=== PATIENT | male | born 1940 | race Caucasian/White ===

== ENCOUNTER → 2021-08-17 08:17 | Outpatient (BNVA) | payer MEDICARE, SELFPAY | PROVIDERS: PCP Internal Medicine; Visit Provider Nurse Practitioner Family | DX: R26.9 Unspecified abnormalities of gait and mobility (principal); R13.10 Dysphagia, unspecified; M48.061 Spinal stenosis, lumbar region without neurogenic claudication | CPT/HCPCS: 99212 ==

== ENCOUNTER → 2021-11-16 10:08 | Outpatient (BNVA) | payer MEDICARE, SELFPAY | PROVIDERS: PCP Internal Medicine; Visit Provider Nurse Practitioner Family | DX: R26.9 Unspecified abnormalities of gait and mobility (principal); W19.XXXA Unspecified fall, initial encounter | CPT/HCPCS: 99212 ==

== ENCOUNTER → 2022-06-07 08:52 | Outpatient (BNVA) | payer MEDICARE, SELFPAY | PROVIDERS: PCP Internal Medicine; Visit Provider Nurse Practitioner Family | DX: R26.9 Unspecified abnormalities of gait and mobility (principal); Z91.81 History of falling | CPT/HCPCS: 99212 ==

== ENCOUNTER → 2022-12-06 08:34 | Outpatient (BNVA) | payer MEDICARE, SELFPAY | PROVIDERS: PCP Internal Medicine; Visit Provider Nurse Practitioner Family | DX: R26.9 Unspecified abnormalities of gait and mobility (principal); R29.898 Other symptoms and signs involving the musculoskeletal system; Z91.81 History of falling | CPT/HCPCS: 99212 ==

== ENCOUNTER 2023-06-13 10:49 | Outpatient (AMB) | payer MEDICARE, SELFPAY ==
--- NOTE | 2023-06-13 10:53 | A.OFFVIS_ITS ---
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 He still feels gait imbalance sometimes, veering while he walks. However, no falls since 2020. Pt states that he is afraid to fall, stay in his recliner, and does not walk frequently. Pt tried physical therapy in the past, and it helped him to have good balance and strength. He uses cane but sometimes just carries cane. He also uses rolled walker, and it helps him walk better, but can't use it inside his house. Pt gets light headedness in the morning. He drinks only couple of sips of water daily. Denies vision changes. Denies headache, or urinary incontinence. Denies confusion or cognitive changes. 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 Review of Systems Const All systems reviewed & are unremarkable except as noted in HPI and below ENT Reports Normal hearing present Neuro Reports Normal hearing present Physical Exam Vital Signs: Last Vital Signs Pulse 76 06/13/23 11:01 BP 110/70 06/13/23 11:01 Pulse Ox 96 06/13/23 11:01 Oxygen Delivery Method Room Air 06/13/23 11:01 Const General: cooperative and comfortable Nutritional Appearance: average body habitus Orientation/consciousness: patient oriented x3 Limitations: ambulation with cane HEENT Head: Yes normocephalic Neck Neck: Yes full ROM and Yes supple Resp Effort & Inspection: normal respiratory effort and able to speak in complete sentences Neuro Other: Decreased bilateral hands document control assistant strength. General: patient oriented x3 Cranial nerves: Yes Bilaterally intact EOM present, Yes Normal hearing present, Yes Ability to bilaterally rotate head present and Yes Ability to bilaterally elevate shoulders present Cognition (Neuro): normal cognition Gait exam (Neuro): Assistive device used (cane) Motor exam (neuro): 5/5 motor strength present throughout and Pronator motor function not present Psych Appearance: grossly normal Mental Status: mental status grossly normal Speech and movement: Normal speech and movement present and Clear speech present Affect: normal affect Attitude: cooperative Assessment & Plan Assessment & Plan (1) Gait disorder: Code(s): R26.9 - Unspecified abnormalities of gait and mobility (2) Falls: Code(s): W19.XXXA - Unspecified fall, initial encounter Plan Advised patient to increase physical activity, walking and gentle exercise to improve muscle strength and balance. Continue to use cane. Advised patient to try physical therapy for gait training and bilateral lower extremities strength. Advised patient to undergo brain MRI to assess for imbalance gait. Encouraged patient to increase PO fluid intake to prevent dehydration and ligh theadedness. Orders: Orders PT Evaluation and Treatment 06/13/23 R26.9 - Unspecified abnormalities of gait and mobility, W19.XXXA - Unspecified fall, initial encounter MR head/brain wo con 06/13/23 R26.9 - Unspecified abnormalities of gait and mobility Coding Level of Care Code Est Pt Level 3 (40574) Diagnoses Gait disorder R26.9 Falls W19.XXXA
[2023-06-13 11:01] VITALS: BP 110/70; PULSE 76; O2SAT 96
== END 2023-06-13 11:33 | disposition home or self-care (01) ==
PROVIDERS: Visit Provider Nurse Practitioner Family
DX: R26.9 Unspecified abnormalities of gait and mobility (principal); R29.6 Repeated falls
CPT/HCPCS: 99213

== ENCOUNTER → 2023-06-13 10:49 | Outpatient (BNVA) | payer MEDICARE, SELFPAY | PROVIDERS: Visit Provider Nurse Practitioner Family | DX: R26.9 Unspecified abnormalities of gait and mobility (principal); Z91.81 History of falling | CPT/HCPCS: 99212 ==

== ENCOUNTER 2023-10-02 08:39 | Outpatient (AMB) | payer MEDICARE, SELFPAY ==
--- NOTE | 2023-10-02 08:46 | MHC.OFFVIS ---
Intake Vital Signs 10/02/23 08:47 Height 5 ft 10 in Weight 180 lb BMI 25.8 BP 118/64 Blood Pressure Location Lt brachial Position Sitting Respiration 16 Pulse 98 Pulse Source Pulse Oximeter Pulse Oximetry (%) 95 Oxygen Delivery Method Room Air Intake Visit Reasons: f/u for balances and recent fall-LVM Intake Note: Pt presents to the office for 4 month follow up for balance issues and falls. Director Inpatient Headache Program Required: No Allergies No Known Allergies Allergy (Verified 10/02/23 08:47) HPI HPI Comments History of Present Illness Details 83 y/o male patient presents with his for follow up of gait imbalance.He had COVID Nov 09-20- he was very weak and had a fall at home, He was trying to get form the chair and fell down. He did not hist his head- he could not stand so he was taken to [facility] and found to have a bleed- ? stroke . He was in the hospital for 1 week and then in rehab . He has been home since Jul 21 He had home PT and OT. 3 weeks prior to that he had a fall - but did not hit his head. 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 Cruz who is following him up in 6 mths He still feels gait imbalance sometimes, veering while he walks. Pt states that he is afraid to fall, stay in his recliner, and does not walk frequently. He uses a walker and cane. Pt gets light headedness in the morning. He drinks only couple of sips of water daily. Denies vision changes. Denies headache, or urinary incontinence. Denies confusion or cognitive changes. 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 decreased blink and facial expression walks with a cane mild off balance and wide based gait General: patient oriented x3 Cranial nerves: Yes Bilaterally intact EOM present, Yes Normal hearing present, Yes Ability to bilaterally rotate head present and Yes Ability to bilaterally elevate shoulders present Cognition (Neuro): normal cognition Gait exam (Neuro): Assistive device used (cane) Motor exam (neuro): 5/5 motor strength present throughout and Pronator motor function not present Psych Appearance: grossly normal Mental Status: mental status grossly normal Speech and movement: Normal speech and movement present and Clear speech present Affect: normal affect Attitude: cooperative Results Reviewed Results Reviewed: CT Brain- 06/29/23- small ill defined hyperdense within the dorsum of the leslie with differential includin small hemorrhage vs vascular malformation. 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 Mild mass effect along the floor of 4 th ventricle. 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 Nonspecific white mater changes. Assessment & Plan Assessment & Plan (1) Gait disorder: Comment: frontal gait disorder Code(s): R26.9 - Unspecified abnormalities of gait and mobility (2) Falls: Code(s): W19.XXXA - Unspecified fall, initial encounter Plan Reviewed MRI Brain and CTA. F/u with Dr. Cruz ( vascular ) Advised patient to increase physical activity, walking and gentle exercise to improve muscle strength and balance. Continue to use walker. Advised patient to try physical therapy for gait training and bilateral lower extremities strength. Advised patient to undergo brain MRI to assess for imbalance gait. Encouraged patient to increase PO fluid intake to prevent dehydration and lightheadedness. Coding Level of Care Code Est Pt Level 4 (35460) Diagnoses Gait disorder R26.9 Falls W19.XXXA
[2023-10-02 08:47] VITALS: BP 118/64; PULSE 98; RESP 16; O2SAT 95; BMI 25.8
== END 2023-10-02 11:21 | disposition home or self-care (01) ==
PROVIDERS: PCP Internal Medicine; Visit Provider Psychiatry & Neurology Neurology
DX: R26.9 Unspecified abnormalities of gait and mobility (principal); R29.6 Repeated falls
CPT/HCPCS: 99214

== ENCOUNTER → 2023-10-02 08:39 | Outpatient (BNVA) | payer MEDICARE, SELFPAY | PROVIDERS: PCP Internal Medicine; Visit Provider Psychiatry & Neurology Neurology | DX: R26.9 Unspecified abnormalities of gait and mobility (principal); Z91.81 History of falling | CPT/HCPCS: 99212 ==

== ENCOUNTER 2024-08-31 09:14 | Outpatient (REF) | payer MEDICARE, SELFPAY ==
[2024-08-31 09:22] VITALS: BP 150/78; PULSE 101; RESP 16; TEMP 36.1; O2SAT 97; BMI 27.4
--- OUTSIDE RECORDS SUMMARY | 2024-08-31 09:33 | XMS_ITS | Clinical Summary ---
Author Organization [facility] it Address [address] [place] [address] Care Team Providers Care Filter Tender Jelly Name Role Phone Hans Messer DO Primary Care Provider [phone] Allergies No known active allergies Medications Medication Sig Dispensed Refills Start Date End Date Status albuterol HFA (PROAIR HFA ; PROVENTIL HFA ; VENTOLIN HFA) 90 mcg/actuation inhaler INHALE 2 PUFFS NEEDED FOR WHEEZING EVERY 6 HOURS 11/08/2023 Active fluticasone furoate-vilanteroL (Breo Ellipta) 100-25 mcg/dose inhaler INHALE ONE PUFF BY MOUTH EVERY DAY 11/27/2023 Active FERROUS SULFATE ORAL Take by mouth. Active glipiZIDE (GLUCOTROL XL) 10 mg 24 hr tablet TAKE ONE TABLET BY MOUTH EVERY DAY WITH FOOD 10/03/2023 Active hydroCHLOROthiazide (HYDRODIURIL) 25 mg tablet Take 1 tablet (25 mg total) by mouth daily. in the morning 12/17/2023 Active lancets (OneTouch Delica Plus Lancet) 33 gauge USE TO TEST BLOOD SUGAR ONCE DAILY DIRECTED 11/13/2023 Active losartan (COZAAR) 25 mg tablet Take 1 tablet (25 mg total) by mouth daily. 12/17/2023 Active simvastatin (ZOCOR) 40 mg tablet TAKE ONE TABLET BY MOUTH EVERY EVENING AT BEDTIME 09/26/2023 Active rivaroxaban (Xarelto DVT-PE Treat 30d Start) starter pack 12/09/2023 Activ e Active Problems Problem Noted Date Diagnosed Date Deep vein thrombosis (DVT) of proximal lower ext remity 12/24/2023 Pulmonary embolus 12/24/2023 Social History Tobacco Use Types Packs/Day Years Used Date Smoking Tobacco: Never Assessed Sex and Gender Information Value Date Recorded Sex Assigned at Not on file Gender Identity Not on file Sexual Orientation Not on file Obstetrics History Last Filed Vital Signs Vital Sign Reading Time Taken Comments Blood Pressure 125/63 01/23/2024 11:36 AM EDT Sitting Left arm Pulse 86 01/23/2024 11:36 AM EDT Temperature - - Respiratory Rate - - Oxygen Saturation - - Inhaled Oxygen Concentration - - Weight 84.9 kg (187 lb 3.2 oz) 01/23/2024 11:36 AM EDT Height 177.8 cm (5' 10 ) 01/23/2024 11: 36 AM EDT Body Mass Index 26.86 01/23/2024 11:36 AM EDT Plan of Treatment Upcoming Encounters Date Type Department Care Team (Late st Contact Info) Description 11/13/2024 11:30 AM EDT Office Visit [facility] Hematology Oncology [address] [place] [address] Kboe-Cherrie Clayton MD [address] [place] [address] Health Maintenance Due Date Last Done Comments DTaP,Tdap,and Td Vaccines (1 - Tdap) 1959 Zoster Vaccines (1 of 2) 1990 Pneumococcal Vaccine: 65+ Ye ars (1 of 1 - PCV) 2005 RSV Immunization Patients 60 + Years Old (1 - 1-dose 75+ series) 2015 Cholesterol Screening (Lipid Panel) 06/26/2022 Depression Screening 06/26/2022 Falls Risk Assessment 06/26/2022 Medicare Annual Wellness Visit 06/26/2022 Social Influencers of Health Screening 06/26/2022 COVID-19 Vaccine (1 - 2023-2 5 season) 2024 Influenza Vaccine (#1) 2024 05/16/2017 HIB Vaccines Aged Out No longer eligi ble based on patient's age to complete this topic HPV Vaccines Aged Out No longer eligi ble based on patient's age to complete this topic Hepatitis A Vaccines Aged Out No long er eligible based on patient's age to complete this topic Hepatitis B Vaccines Aged Out No long er eligible based on patient's age to complete this topic IPV Vaccines Aged Out No longer eligi ble based on patient's age to complete this topic MMR Vaccines Aged Out No longer eligi ble based on patient's age to complete this topic Meningococcal ACWY Vaccine Aged Out N o longer eligible based on patient's age to complete this topic RSV Immunization Patients Un chin 20 months Aged Out No longer eligible b ased on patient's age to complete this topic Varicella Vaccines Aged Out No longer eligible based on patient's age to complete this topic Advance Directives Documents on File Type Date Recorded Patient Extermination Supervisor Expl anation Health Care Decision (hx) 11/22/2023 AD GONSALEZ DIRECTIVE Health Care Decision (hx) 11/22/2023 AD GONSALEZ DIRECTIVE Health Care Decision (hx) 11/22/2023 AD GONSALEZ DIRECTIVE Health Care Decision (hx) 11/22/2023 AD GONSALEZ DIRECTIVE Health Care Decision (hx) 11/22/2023 AD GONSALEZ DIRECTIVE Health Care Decision (hx) 11/22/2023 AD GONSALEZ DIRECTIVE Care Teams Filter Tender Jelly Relationship Specialty Start Date End Date Hans Messer DO [address] [place] [id number] PCP - General 12/02/23
--- OUTSIDE RECORDS SUMMARY | 2024-08-31 09:33 | XMS_ITS | Clinical Summary ---
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 in the morning 0 12/17/2023 Active Lancets (OneTouch Delica Plus [id number]) [facility] USE TO TEST BLOOD SUGAR ONCE DAILY DIRECTED 0 11/13/2023 Active losartan (COZAAR) tablet 25 mg Take 1 tablet (25 mg total) by mouth daily. 0 12/17/2023 Active Xarelto Starter Pack 15 & 20 MG TBPK 0 12/09/2023 Active simvastatin (ZOCOR) tablet 40 mg TAKE ONE TABLET BY MOUTH EVERY EVENING AT BEDTIME 0 09/26/2023 Active Ferrous Sulfate (IRON PO) Take by mouth. 0 Active Active Problems Problem Noted Date Diagnosed Date Deep vein thrombosis (DVT) of proximal lower ext remity 12/24/2023 Pulmonary embolus 12/24/2023 Social History Tobacco Use Types Packs/Day Years Used Date Smoking Tobacco: Never Assessed Sex and Gender Information Value Date Recorded Sex Assigned at Male 12/02/2023 2:19 PM EDT Gender Identity Not on file Sexual Orientation Not on file Job Start Date Occupation Industry Not on file Not on file Not on file Last Filed Vital Signs Vital Sign Reading Time Taken Comments Blood Pressure 125/63 01/23/2024 11:36 AM EDT Pulse 86 01/23/2024 11:36 AM EDT Temperature 36.6 ??C (97.8 ??F) 01/23/2024 11:36 AM E DT Respiratory Rate - - Oxygen Saturation 98% 01/23/2024 11:36 AM EDT Inhaled Oxygen Concentration - - Weight 84.9 kg (187 lb 3.2 oz) 01/23/2024 11:36 AM EDT Height 177.8 cm (5' 10 ) 01/23/2024 11:36 AM EDT Body Mass Index 26.86 01/23/2024 11:36 AM EDT Plan of Treatment Health Maintenance Due Date Last Done Comments COVID-19 Vaccine (#1) 1940 Depression Screening 1952 Preventative Health Evaluation 1958 DTap / Tdap / Td (1 - Tdap) 1959 Shingrix-Zoster Vaccine (1 of 2) 1990 Fall Risk Assessment 2005 Pneumococcal Vaccine (1 of 1 - PCV) 2005 RSV Adult > 60+ Yrs or (1 - 1-dose 75+ series) 2015 Influenza Vaccine (#1) 2024 3, 06/06/2022, 05/05/2020, Additional history exists Hepatitis B Vaccines Aged Out No long er eligible based on patient's age to complete this topic RSV Ped < 20 months Aged Out No longe r eligible based on patient's age to complete this topic Care Teams M[employer] Relationship Specialty Start Date End Date Hans Messer DO [address] [place] [id number] PCP - General Internal Medicine 12/02/23
== END 2024-08-31 09:15 | disposition home or self-care (01) ==
LOC: HO.MS 09:14
PROVIDERS: PCP Internal Medicine; Visit Provider Ophthalmology
PROC: (CPT 66821; principal; 2024-08-31 10:40)
DX: H26.492 Other secondary cataract, left eye (principal)
CPT/HCPCS: 66821